=== PATIENT | female | born 1985 | race African-American/Black ===

== ENCOUNTER 2017-07-28 04:32 | Emergency (ER) | payer OTHER ==
[2017-07-28] MEDS ORDERED: Dexamethasone 10 MG/ML VIAL ONE (05:17)
[2017-07-28] MEDS ORDERED: Ketorolac Tromethamine 60 MG/2 ML VIAL ONE (05:17)
== END 2017-07-28 05:56 | disposition home or self-care (01) ==
LOC: ERS 04:32
DX: M54.42 Lumbago with sciatica, left side (principal); F41.9 Anxiety disorder, unspecified
CPT/HCPCS: 96372; J1100; J1885

== ENCOUNTER 2020-03-25 05:14 | Emergency (ER) | payer SELFPAY ==
[2020-03-25] MEDS ORDERED: diphenhydrAMINE 50 MG/ML VIAL ONE (05:51)
[2020-03-25] MEDS ORDERED: Metoclopramide HCl 10 MG/2 ML VIAL ONE (05:51)
== END 2020-03-25 06:57 | disposition short-term general hospital (02) ==
LOC: ERS 05:14
DX: R51 Headache (principal); F41.9 Anxiety disorder, unspecified
CPT/HCPCS: 96374; 96376; J1200; J2765

== ENCOUNTER 2025-08-23 13:23 | Emergency (ER) | payer OTHER ==
[2025-08-23] MEDS ORDERED: Ketorolac Tromethamine 30 MG (1 mL) VIAL ONE (17:05)
[2025-08-23] MEDS ORDERED: Dexamethasone 10 MG/ML VIAL ONE (17:05)
[2025-08-23] MEDS ORDERED: HYDROcodone/Acetaminophen 5/325 mg Tablet ONE (17:06)
== END 2025-08-23 17:20 | disposition home or self-care (01) ==
LOC: ERS 13:23
DX: M54.42 Lumbago with sciatica, left side (principal)
CPT/HCPCS: 36416; 99283; J1100; J1885